=== PATIENT | female | born 1980 | race African-American/Black ===

== ENCOUNTER 2023-03-18 12:45 | Emergency (ER) | payer OTHER, SELFPAY ==
--- NOTE | 2023-03-18 12:49 | ED.GENADULT ---
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 She states the pain went into her left hand and cause some minor bleeding. She works for client with unknown medical problems. The client told her that the pain had pricked them at some point in the past as well. The pain was not rest the. The patient does not know if client has HIV or not. She is up-to-date on her tetanus shot. she washed out with alcohol and then soap and water after the incident. MD complaint: Hand injury Onset (ago): minute(s) Location: left and upper extremity Radiation: non-radiation Severity: mild Quality: aching Pain Consistency: now resolved Exacerbating factors: none Associated symptoms: denies other symptoms Treatments prior to arrival: none Related Data Allergies Allergy/AdvReac Type Severity Reaction Status Date / Time No Known Allergies Allergy Verified 03/18/23 12:53 Review of Systems Review of Systems: Yes all other systems are reviewed and are negative [facility] Social History Social History Advance Directives: No Physical Exam ED Vital Signs: Vital Signs - 24 hr 03/18/23 12:50 Temperature 96.9 F Pulse Rate 75 Respiratory Rate 20 Blood Pressure 168/91 H Pulse Oximetry 98 Oxygen Delivery Method Room Air BMI result Body Mass Index 32.4 Appearance: Alert. Oriented X3. No acute distress. HEENT: normal inspection CVS: Normal heart rate and rhythm. Pulses normal. Respiratory: No respiratory distress. Skin: Skin warm and dry. Normal skin color. Normal skin turgor. No rashes. Extremities: Left palm with a punctate wound in the area of the 4th metacarpal. Normal range of motion and hand grasp of the left hand. No surrounding erythema, areas nontender. Neuro: Oriented X 3. No motor deficit. No sensory deficit. Course Course Course Narrative: RME performed by Gina Topete PA-C. Patient is a 42 year old assigned female at presenting to the emergency department with a left hand injury after being pinched by a mattress clip. Patient states that the same clip pinched her patient first - so there may be risk of exposure. Patient states that she is up to date on her tetanus. Labs ordered. Patient placed back in the waiting room pending room availability and results. Medical Decision Making Medical Decision Making [facility] Narrative: 42-year-old female presents to the ER for evaluation a metal puncture wound to her left hand at a client's home today. She is concerned because the client had stuck themselves with the same object, unknown when this was but it was not today. Patient has a known HIV status. Given the patient's mechanism, this was considered a very low risk exposure with less than 0.001%. discussed the risks and benefits, pros and cons of post exposure prophylaxis. At this time it is not clinically warranted. Patient is in agreement. She is stable for discharge home. Her labs reviewed and unremarkable. She will follow-up with her primary care doctor. Differential Diagnosis Differential Diagnoses: The differential diagnosis associated with the presentation includes Superficial puncture, deep puncture involving the bone, low risk HIV exposure Lab Data [facility] Lab Attestation statement: I reviewed the patient's lab results. Mild microcytic anemia 03/18/23 13:11 03/18/23 13:11 Labs: Lab Results 03/18/23 03/18/23 03/18/23 Range/Units 13:11 13:11 13:11 WBC 6.8 (4.8-10.8) X10*3/uL RBC 4.35 (4.20-5.50) X10*6/uL Hgb 11.7 L (12.0-16.0) g/dl Hct 33.8 L (37.0-47.0) % MCV 77.7 L (80.0-98.0) fL MCH 26.9 L (27.0-33.0) pg MCHC 34.6 (31.0-35.0) g/dl RDW 14.2 (11.0-16.0) % Plt Count 225 (160-400) X10*3/uL MPV 11.9 (9.4-12.3) fL Immature Gran % (Auto) 0.4 (0.0-0.4) % Neut % (Auto) 55.7 (45-73) % Lymph % (Auto) 33.1 (20-40) % Villalba % (Auto) 8.0 (2-11) % Eos % (Auto) 2.4 (0-4) % Baso % (Auto) 0.4 (0-2) % Lymph # (Auto) 2.2 (1.2-4.9) X10*3/uL Villalba # (Auto) 0.5 (0.1-1.2) X10*3/uL Eos # (Auto) 0.2 (0.0-0.4) X10*3/uL Baso # (Auto) 0.0 (0.0-0.2) X10*3/uL Abs Immat Gran (auto) 0.03 (0.00-0.03) X10*3/uL Absolute Neuts (auto) 3.8 (2.0-8.3) x10*3/uL Absolute Nucleated RBC 0.000 (0.0-0.012) X10*3/uL Nucleated RBC % (auto) 0.0 (0.0-0.2) /100WBC Sodium 142 (135-145) mmol/L Potassium 3.8 (3.3-5.1) mmol/L Chloride 107 (96-108) mmol/L Carbon Dioxide 26 (22-29) mmol/L Anion Gap 13 (12-20) BUN 13 (9-16) mg/dL Creatinine 0.69 (0.5-1.4) mg/dL Estim Creat Clear Calc 114.2 Estimated GFR > 60 Random Glucose 82 (60-115) mg/dL Calcium 9.5 (8.4-10.2) mg/dL Total Bilirubin 0.4 (0.0-1.0) mg/dL Direct Bilirubin 0.1 (0.0-0.5) mg/dL AST 21 (5-31) U/L ALT 28 (0-31) U/L Alkaline Phosphatase 94 (39-117) U/L Total Protein 7.2 (6.5-8.0) g/dL Albumin 3.9 (3.5-5.0) g/dL Urine Test (NEGATIVE) Hep Bs Antigen Negative (Negative) Hep Bs Antibody NONREACTIVE (Nonreactive) Hep B Core Total Ab Nonreactive (Nonreactive) Hepatitis C Ab (EIA) Nonreactive (Nonreactive) HIV 1&2 Ab/P24 Ag 4thGn Nonreactive (Nonreactive) 03/18/23 Range/Units 13:11 WBC (4.8-10.8) X10*3/uL RBC (4.20-5.50) X10*6/uL Hgb (12.0-16.0) g/dl Hct (37.0-47.0) % MCV (80.0-98.0) fL MCH (27.0-33.0) pg MCHC (31.0-35.0) g/dl RDW (11.0-16.0) % Plt Count (160-400) X10*3/uL MPV (9.4-12.3) fL Immature Gran % (Auto) (0.0-0.4) % Neut % (Auto) (45-73) % Lymph % (Auto) (20-40) % Villalba % (Auto) (2-11) % Eos % (Auto) (0-4) % Baso % (Auto) (0-2) % Lymph # (Auto) (1.2-4.9) X10*3/uL Villalba # (Auto) (0.1-1.2) X10*3/uL Eos # (Auto) (0.0-0.4) X10*3/uL Baso # (Auto) (0.0-0.2) X10*3/uL Abs Immat Gran (auto) (0.00-0.03) X10*3/uL Absolute Neuts (auto) (2.0-8.3) x10*3/uL Absolute Nucleated RBC (0.0-0.012) X10*3/uL Nucleated RBC % (auto) (0.0-0.2) /100WBC Sodium (135-145) mmol/L Potassium (3.3-5.1) mmol/L Chloride (96-108) mmol/L Carbon Dioxide (22-29) mmol/L Anion Gap (12-20) BUN (9-16) mg/dL Creatinine (0.5-1.4) mg/dL Estim Creat Clear Calc Estimated GFR Random Glucose (60-115) mg/dL Calcium (8.4-10.2) mg/dL Total Bilirubin (0.0-1.0) mg/dL Direct Bilirubin (0.0-0.5) mg/dL AST (5-31) U/L ALT (0-31) U/L Alkaline Phosphatase (39-117) U/L Total Protein (6.5-8.0) g/dL Albumin (3.5-5.0) g/dL Urine Test NEGATIVE (NEGATIVE) Hep Bs Antigen (Negative) Hep Bs Antibody (Nonreactive) Hep B Core Total Ab (Nonreactive) Hepatitis C Ab (EIA) (Nonreactive) HIV 1&2 Ab/P24 Ag 4thGn (Nonreactive) Prescription Management I considered prescription management with: Antiviral and Antibiotic Critical Care Time Critical Care Time Critical Care Time: No Discharge Plan Discharge Clinical Impression: Exposure to body fluid due to accidental hypodermic needlestick injury Patient Disposition: Home, Self-Care Instructions: Needle Stick Injuries (ED) Additional Instructions: You came to the ED with a low risk needle stick injury. We used a risk calculator to determine that HIV transmission via the mattress pin that may have at one point stuck the patient is highly unlikely, and therefore PEP is not recommended at this time. Interventions: ED Discharge Assessment Last Done: 03/18/23 14:19 Discharge Date/Time: 03/18/23 14:20
[2023-03-18 12:50] VITALS: BP 168/91; PULSE 75; RESP 20; TEMP 36.1; O2SAT 98; BMI 32.4
[2023-03-18 13:26] LABS: MANUAL DIFF FLAG NO
[2023-03-18 13:28] LABS: Basophils Percent Auto 0.4 % (0-2); Eosinophils Absolute Auto 0.2 X10*3/uL (0.0-0.4); Eosinophils Percent Auto 2.4 % (0-4); Hematocrit 33.8 % (37.0-47.0); Hemoglobin 11.7 g/dl (12.0-16.0); Imm Gran Abs Auto 0.03 X10*3/uL (0.00-0.03); Imm Gran Pct Auto 0.4 % (0.0-0.4); Lymphocytes Absolute Auto 2.2 X10*3/uL (1.2-4.9); Lymphocytes Percent Auto 33.1 % (20-40); Mean Corpuscular HGB Conc 34.6 g/dl (31.0-35.0); Mean Corpuscular Hemoglobin 26.9 pg (27.0-33.0); Mean Corpuscular Volume 77.7 fL (80.0-98.0); Mean Platelet Volume 11.9 fL (9.4-12.3); Monocytes Absolute Auto 0.5 X10*3/uL (0.1-1.2); Neutrophils Absolute Auto 3.8 x10*3/uL (2.0-8.3); Neutrophils Percent Auto 55.7 % (45-73); Platelet Count 225 X10*3/uL (160-400); Red Blood Count 4.35 X10*6/uL (4.20-5.50); Red Cell Distribution Width 14.2 % (11.0-16.0); White Blood Count 6.8 X10*3/uL (4.8-10.8)
[2023-03-18 13:31] LABS: UPreg QC Valid YES; Urine Pregnancy NEGATIVE (NEGATIVE)
[2023-03-18 13:47] LABS: Alanine Aminotransferase 28 U/L (0-31); Albumin Level 3.9 g/dL (3.5-5.0); Alkaline Phosphatase 94 U/L (39-117); Anion Gap 13 (12-20); Aspartate Amino Transferase 21 U/L (5-31); Bilirubin Direct 0.1 mg/dL (0.0-0.5); Bilirubin Total 0.4 mg/dL (0.0-1.0); Blood Urea Nitrogen 13 mg/dL (9-16); Calcium 9.5 mg/dL (8.4-10.2); Carbon Dioxide 26 mmol/L (22-29); Chloride 107 mmol/L (96-108); Creatinine Clr Calc Pharmacy 114.2; Estimated Glomerular Filt Rate > 60; Glucose Random 82 mg/dL (60-115); Potassium 3.8 mmol/L (3.3-5.1); Sodium 142 mmol/L (135-145); Total Protein 7.2 g/dL (6.5-8.0)
[2023-03-18 14:07] LABS: HBS Num1 0.05 mIU/mL (0-7.99); HBc Num1 0.09 S/CO (0.00-0.79); HBsAGNum1 0.29 S/CO (0.00-0.99); HIV AB/AG Nonreactive (Nonreactive); HIV Num 1 0.06 S/CO (0.00-0.99); Hepatitis B Core Antibody Nonreactive (Nonreactive); Hepatitis B Surface Antigen Negative (Negative); ~HepC Num1 0.13 S/CO (0.00-0.79); ~Hepatitis B Surface Antibody NONREACTIVE (Nonreactive); ~Hepatitis C Antibody Nonreactive (Nonreactive)
== END 2023-03-18 14:20 | disposition home or self-care (01) ==
PROVIDERS: Physician Assistant Medical; Emergency Provider Emergency Medicine
DX: Z04.2 Encounter for examination and observation following work accident (principal); Z77.21 Contact with and (suspected) exposure to potentially hazardous body fluids
CPT/HCPCS: 36415; 80048; 80076; 81025; 85025; 86704; 86706; 86803; 87340; 87389; 99282; 99283

== ENCOUNTER 2023-08-21 18:48 | Emergency (ER) | payer OTHER, SELFPAY ==
[2023-08-21 19:03] VITALS: BP 148/66; PULSE 65; RESP 17; TEMP 36.2; O2SAT 100; BMI 35.9
--- NOTE | 2023-08-21 19:03 | ED_ITS ---
HPI - General Adult General Chief complaint: Wound/Laceration Stated complaint: L hand lac while cooking Source: patient Mode of arrival: ambulatory Limitations: no limitations History of Present Illness HPI narrative: 42 yo f presents w/ lac to left hand since last night cut herself while cutting frozen cheese. Reports pain 6-7/10 to palm of left hand. Has been cleaning and wraping it at home. UTD on tetanus. Right hand dominant. No fevers, chills, numbness or tingling. Related Data Previous Rx's Medication Instructions Recorded bacitracin 500 unit/gram topical 1 appl topical TID #14 grams 08/21/23 ointment cephalexin 500 mg tablet 500 mg PO Q6H 10 days #40 tabs 08/21/23 Allergies Allergy/AdvReac Type Severity Reaction Status Date / Time No Known Allergies Allergy Verified 03/18/23 12:53 Review of Systems Review of Systems: Constitutional : No Fever, No Chills, Cardiovascular : No Chest Pain, No SOB Respiratory : No Dyspnea Gastrointestinal : No abdominal pain Musculoskeletal : No Joint Swelling Skin : No rash, positive skin laceration Neuro : No Weakness, No Numbness Psych : No SI/HI Yes all other systems are reviewed and are negative [facility] Past Medical History Attestation statement: The following information was validated with the patient. Source: old records reviewed and nursing notes reviewed Physical Exam ED Vital Signs: vss Appearance: Alert.? Oriented X3.? No acute distress.? Head: Normocephalic, atraumatic, no step-offs or deformities Eyes: Pupils equal, round and reactive to light.? CVS:Pulses normal.? Respiratory: No respiratory distress Abdomen: Soft and nontender.? Skin: Skin warm and dry.? Normal skin color.? Normal skin turgor.? + 1 cm linear lac to left palm of hand. Normal oposition and repositioning of all fingers b/l. Full rom painless to all fingers. No errythema or warmth to b/l palms Extremities5/5 strength to bilateral upper and lower extremities Neuro: Oriented X 3.? No motor deficit.? No sensory deficit. Ambulatory w/ steady gait normal coordination Course Course Course Narrative: This is an RME: Additional HPI, ROS, PE not included below will be deferred to primary provider. 42 yo f presents w/ lac to left hand since last night cut herself while cutting frozen cheese. Reports pain 6-7/10 to palm of left hand. UTD on tetanus. Right hand dominant. No fevers, chills, numbness or tingling. Plan- dc from waititng room Medical Decision Making Medical Decision Making [facility] Narrative: 42-year-old female presents with accidental laceration to left palm of hand status post cutting frozen cheese. ? + 1 cm linear lac to left palm of hand. This is likely simple laceration unlikely neurovascular compromise, threat to Sharpe, fracture dislocation. Unlikely nerve damage. Unlikely fracture, dislocation, threat to Sharpe. Plan discharge home with Keflex, topical antibiotics. Educated patient on diagnosis and treatment plan, answered all question, patient verbalizes understanding. At this time patient will be discharged home, advised to return with new or worsening symptoms. Educated on worrisome signs and symptoms and when to return. At this time I feel comfortable discharge home. Differential Diagnosis Differential Diagnoses: The differential diagnosis associated with the presentation includes This is likely simple laceration unlikely neurovascular compromise, threat to Sharpe, fracture dislocation. Unlikely nerve damage. Unlikely fracture, dislocation, threat to Sharpe. Admission/Observation Consideration of admission/observation: Escalation of care including admission/observation considered Tests considered The following testing was considered but not selected: Considered x-ray, no point tenderness, no trauma other than a puncture wound. No indication for imaging at this time low suspicion for fracture dislocation. Discharge Plan Discharge Clinical Impression: Laceration of hand Patient Disposition: Home, Self-Care Instructions: Laceration (ED) Additional Instructions: Take your medications as prescribed. If you were prescribed antibiotics today, it is important that you take your medication to their entirety, do not skip any doses, do not finish them early. Follow-up with your primary care provider this week. Follow up with ortho if needed Return to the emergency department with new or worsening symptoms. Such as fevers, chills, chest pain, shortness of breath, nausea, vomiting, dizziness, headache, vision changes, lethargy, numbness, tingling In case of emergency call 911 Prescriptions: New cephalexin 500 mg tablet 500 mg PO Q6H 10 Days Qty: 40 0RF bacitracin 500 unit/gram ointment 1 appl topical TID Qty: 14 0RF Referrals: [facility] [Provider Group] - 1 week Physician,Unknown J [Primary Care Provider] - 2 days Stand Alone Forms: Work/School Release
== END 2023-08-21 19:21 | disposition home or self-care (01) ==
PROVIDERS: Emergency Provider Internal Medicine
DX: S61.412A Laceration without foreign body of left hand, initial encounter (principal); M79.642 Pain in left hand; W26.0XXA Contact with knife, initial encounter; Y93.G1 Activity, food preparation and clean up; Y92.9 Unspecified place or not applicable; Y99.9 Unspecified external cause status
CPT/HCPCS: 99282

== ENCOUNTER 2023-12-01 12:12 | Emergency (ER) | payer OTHER, SELFPAY ==
[2023-12-01 13:07] VITALS: BP 154/85; PULSE 77; RESP 17; TEMP 36.4; O2SAT 96; BMI 35.2
--- NOTE | 2023-12-01 13:09 | ED.URI ---
HPI - URI/Sore Throat General Chief Complaint: General Medical Stated Complaint: +covid home test, wants to confirm Time Seen by Provider: 12/01/23 13:15 Source: patient Mode of arrival: ambulatory Limitations: no limitations History of Present Illness HPI Narrative: 42 yo female with no significant past medical history presents to the Emergency Department with complaints of sore throat, headache, and low back pain. Took an at home Covid test which was positive. Would like to confirm here in the ED. Reports she took Aspirin at home with good relief of headache. Denies shortness of breath, chest pain, abdominal pain, nausea, or vomiting. Related Data Previous Rx's Medication Instructions Recorded bacitracin 500 unit/gram topical 1 appl topical TID #14 grams 08/21/23 ointment cephalexin 500 mg tablet 500 mg PO Q6H 10 days #40 tabs 08/21/23 Allergies Allergy/AdvReac Type Severity Reaction Status Date / Time No Known Allergies Allergy Verified 03/18/23 12:53 Review of Systems Review of Systems: Yes all other systems are reviewed and are negative [facility] Social History Social History Advance Directives: No Physical Exam Vital Signs: Vital Signs: Last Vital Signs Temp 97.5 F 12/01/23 13:07 Pulse 77 12/01/23 13:07 Resp 17 12/01/23 13:07 BP 154/85 H 12/01/23 13:07 Pulse Ox 96 12/01/23 13:07 O2 Del Method Room Air 12/01/23 13:07 BMI result Body Mass Index 35.2 Nursing notes and vital signs reviewed. GENERAL APPEARANCE: A&0 x 4, generally well appearing, no acute distress HENMT: Normal to inspection, atraumatic, face symmetrical. Normal external ears, nose, and oropharynx clear. EYE: PERRLA, EOM intact, structures appear normal NECK: Supple without stiffness or restricted ROM. HEART: Normal rate and regular rhythm, normal S1/S2, no M/R/G LUNGS: LS CTA, moving air well. Able to speak in complete sentences. No crackles, wheezes, or rhonchi auscultated BACK: No CVAT, no obvious deformity EXTREMITIES: Moving all extremities without difficulty. Normal capillary refill. NEUROLOGICAL: Alert and oriented, moving all 4 extremities with equal strength. CN not formally tested but appearing grossly intact. Observed to ambulate with normal gait. Cognition normal SKIN: Warm and dry without any lesions, rash, or visible sores Medical Decision Making Medical Decision Making [facility] Narrative: Old records reviewed for previous imaging, lab studies, ECGs, and notes. Patient was assessed the emergency department with no acute distress or toxicity noted. Nasal swab positive for Covid-19. Patient is safe for discharge at this time with plan for [id number] Tylenol and/or NSAID such as ibuprofen or naproxen for fever/discomfort with dosing as per packaging. Patient educated to rest and increase fluid intake to prevent dehydration. HPI, PE, diagnostics, and plan discussed with patient and family with no unanswered questions at this time. Strict return precautions given to return to the emergency department with new, worsening, or concerning emergent symptoms. Recommended to follow-up with there primary care provider in 24-48 hours for further treatment and management. Differential Diagnosis Differential Diagnoses: The differential diagnosis associated with the presentation includes but not limited to: viral URI, covid, flu, pneumonia, sepsis, malignancy Lab Data Labs: Lab Results 12/01/23 Range/Units 13:37 COVID-19 ([facility]OR) Positive A (Negative) COVID-19 Clin Com See Note Discharge Plan Discharge Clinical Impression: COVID-19 Patient Disposition: Home, Self-Care Instructions: Acetaminophen (By mouth), Ibuprofen (By mouth), COVID-19 (Coronavirus Disease 2019) (ED) Additional Instructions: Your seen in the emergency department for concerns for Covid. Your nasal swab was positive for Covid. It is recommended that you increase your fluid intake to prevent dehydration and rest You are safe for discharge at this time with plan for management of fever or discomfort with [id number] Tylenol and/or NSAID such as ibuprofen or naproxen with dosing as per packaging. Please return to the emergency department with new, worsening, or concerning emergent symptoms. Recommended to follow-up with your primary care provider in 24-48 hours for further treatment and management. Thank you for choosing [facility]. Prescriptions: No Action cephalexin 500 mg tablet 500 mg PO Q6H 10 Days Qty: 40 0RF bacitracin 500 unit/gram ointment 1 appl topical TID Qty: 14 0RF Referrals: [facility] [place] Family Medicine [Provider Group] [facility] [place] Primary Care[facility]ish [Provider Group] [facility] [Provider Group] Stand Alone Forms: Work/School Release Print Language: Nigerian
[2023-12-01 14:04] LABS: COVID-19 Test Positive (Negative); IDNOW Serial# 152EDE1D
== END 2023-12-01 14:44 | disposition home or self-care (01) ==
PROVIDERS: Nurse Practitioner Family; Emergency Provider Emergency Medicine
DX: U07.1 COVID-19 (principal)
CPT/HCPCS: 87635; 99282; 99283